=== PATIENT | female | born 1985 | race Caucasian/White ===

== ENCOUNTER 2017-01-17 21:32 | Emergency (ER) | payer BC ==
[~2017-01-17] VITALS: Ht 157.5 cm; Wt 73.0 kg
[2017-01-17 21:42] VITALS: BP 118/73
== END 2017-01-18 01:19 | disposition left against medical advice (07) ==
LOC: ED 21:32
DX: Z53.21 Procedure and treatment not carried out due to patient leaving prior to being seen by health care provider (principal)